=== PATIENT | female | born 2000 | race Caucasian/White ===

== ENCOUNTER 2022-11-25 01:02 | Emergency (ER) | payer BC ==
[~2022-11-25] VITALS: Ht 165.1 cm; Wt 54.4 kg
[2022-11-25] MEDS ORDERED: CLIN300C12 PO ×2 (01:27→01:32)
[2022-11-25] MEDS ORDERED: CEPH500T PO ×2 (01:27→01:32)
[2022-11-25] MEDS ORDERED: CLINDAMYCIN HCL 150 MG CAPSULE PO ONE (01:30)
[2022-11-25] MEDS ORDERED: CLINDAMYCIN HCL 150 MG CAPSULE ONE (01:32)
[2022-11-25 01:38] VITALS: BP 151/78; TEMP 99.5; O2SAT 97
== END 2022-11-25 01:39 | disposition home or self-care (01) ==
LOC: ER 01:07
DX: L03.211 Cellulitis of face (principal); F17.200 Nicotine dependence, unspecified, uncomplicated; Z88.2 Allergy status to sulfonamides; Z59.00 Homelessness unspecified

== ENCOUNTER 2022-11-25 16:45 | Emergency (ER) | payer BC ==
[~2022-11-25] VITALS: Ht 165.1 cm; Wt 62.6 kg
[~2022-11-25 16:45] MED LIST: CEPH500T PO; CLIN300C12 PO
[2022-11-25] MEDS ORDERED: LORAZEPAM 1 MG TABLET ONE (17:27)
[2022-11-25] MEDS ORDERED: LORAZEPAM 1 MG TABLET PO ONE (17:30)
[2022-11-25 17:39] VITALS: BP 139/76; TEMP 98; O2SAT 100
== END 2022-11-25 17:39 | disposition home or self-care (01) ==
LOC: ER 16:50
DX: F41.9 Anxiety disorder, unspecified (principal); F17.200 Nicotine dependence, unspecified, uncomplicated; Z79.899 Other long term (current) drug therapy

== ENCOUNTER 2022-12-04 01:08 | Emergency (ER) | payer BC ==
[~2022-12-04] VITALS: Ht 162.6 cm; Wt 65.8 kg
[2022-12-04 01:17] VITALS: BP 132/64; TEMP 98.7
[2022-12-04] MEDS ORDERED: LORAZEPAM 1 MG TABLET PO ONE (01:30)
[2022-12-04] MEDS ORDERED: LORAZEPAM 1 MG TABLET ONE (01:33)
[2022-12-04 02:02] VITALS: O2SAT 100
== END 2022-12-04 02:03 | disposition home or self-care (01) ==
LOC: ER 01:09
DX: F41.9 Anxiety disorder, unspecified (principal); F13.239 Sedative, hypnotic or anxiolytic dependence with withdrawal, unspecified; F17.200 Nicotine dependence, unspecified, uncomplicated; Z79.899 Other long term (current) drug therapy; Z59.00 Homelessness unspecified